=== PATIENT | female | born 1975 ===

== ENCOUNTER 2017-01-27 22:41 | Emergency (ER) | payer BC, OTHER ==
--- NOTE | 2017-01-27 22:50 | PDOC ---
History of Present Illness - General Chief Complaint: Pain, Acute Stated Complaint: CHEST PAIN Time Seen by Provider: 01/27/17 22:45 History Source: Patient Exam Limitations: No Limitations - History of Present Illness Initial Comments: 01/27/17 23:20 This is a 41-year-old female with history of hypertension otherwise she is healthy. Patient is complaining of approximately 1 hour pleuritic type chest pain. Patient denies any cough, congestion, fever, chills. Patient denies any recent viral illness. Patient said that she has small children at home and was at [employer] today and so is been doing a fair amount of lifting. Patient said pain is exacerbated with taking a deep breath and with movement. Patient denies any radiation, nausea, diaphoresis or any other associated symptoms. Patient says she is not short of breath. PAST MEDICAL HISTORY: no significant history PAST SURGICAL HISTORY: no significant history FAMILY HISTORY: no pertinant history SOCIAL HISTORY: Pt lives with family and is employed. MEDICATIONS: reviewed ALLERGIES: As per nursing notes Review of Systems General: No fevers or chills, no weakness, no weight loss HEENT: No change in vision. No sore throat,. No ear pain CardioVascular: Pleuritic type chest pain Respiratory:No cough, or wheezing. Gastrointestinal: no nausea, vomitting, diarrhea or constipation, No rectal bleeding Genitourinary: No dysuria, hematuria, or frequency Musculoskeletal: No joint or muscle pain or swelling Neurologic: No headache, vertigo, dizziness or loss of consciousness Psychiatric: nor depression Skin: No rashes or easy bruising Endocrine: no increased thirst or abnormal weight change Allergic: no skin or latex allergy All other systems reviewed and normal Exam: General: Well-nourished well-developed individual, no acute distress HEENT: Throat: Normal, tonsils normal, no erythema or exudate Neck: Supple, no meningeal signs, no lymphadenopathy Eyes::Pupils equal reactive and round, extraocular motion intact Chest: Pain is reproduced on palpation, Cardiac: S1-S2 normal, regular rate and rhythm, no murmurs rubs or gallops Respiratory: Lungs clear to auscultation bilateral Abdomen: Soft, nondistended, normal bowel sounds, nontender to palpation diffusely Extremities: Warm, dry, no cyanosis, clubbing, or edema Skin: No rashes Neuro: Alert and oriented x3, nonfocal exam, grossly intact, normal gait Psych: Normal mood and affect EKG normal sinus rhythm at a rate of [address]-T wave changes, normal intervals, normal EKG Assessment and plan: This is a 41-year-old female with pleuritic type chest pain. Patient had a normal EKG and her only risk factor for coronary artery disease is she reports a history of hypertension however is not on any medication for it and her blood pressure here in the emergency room was 103 systolic. Patient given an anti-inflammatory and told to continue it and follow- up with her primary care doctor. Past History - Past Medical History Allergies/Adverse Reactions: Allergies Allergy/AdvReac Type Severity Reaction Status Date / Time No Known Allergies Allergy Verified 01/27/17 22:49 Home Medications: Ambulatory Orders NK [No Known Home Medication] 01/27/17 *Physical Exam - Vital Signs Last Vital Signs Temp Pulse Resp BP Pulse Ox 98.1 F 80 16 103/73 100 01/27/17 22:50 01/27/17 22:50 01/27/17 22:50 01/27/17 22:50 01/27/17 22:50 ED Treatment Course - Medications Given in the ED: ED Medications Discontinued Medications Generic Name Dose Route Start Last Admin Trade Name Freq PRN Reason Stop Dose Admin Naproxen 500 mg 01/27/17 23:18 01/27/17 23:18 Naprosyn - PO 01/27/17 23:19 500 mg NOW ONE Administration *DC/Admit/Observation/Transfer Diagnosis at time of Disposition: Pleuritic chest pain - Discharge Dispostion Disposition: HOME Condition at time of disposition: Stable Admit: No - Patient Instructions Additional Instructions: Take Naprosyn [id number] is Aleve 2 tablets twice a day with food for the next week. If not improved in one week follow-up with your primary care doctor. Return to the emergency department immediately with ANY new, persistent or worsening symptoms. Continue any medications as previously prescribed by your physician. . Please make sure your doctor reviews the results of your emergency evaluation. Thank you for coming to the Emergency Department today for your care. It was a pleasure to see you today. Please note that your evaluation is INCOMPLETE until you follow-up with your doctor.
[2017-01-27 22:55] VITALS: BP 103/73; PULSE 80; TEMP 98.1; BMI 24.9
[2017-01-27] MEDS ORDERED: NAPROXEN 500 MG TABLET (FP) ONE (23:15)
[2017-01-27] MEDS ORDERED: NAPROXEN 500 MG TABLET (FP) PO ONE (23:18)
--- NOTE | 2017-01-28 14:16 | EKG ---
Test Reason : Blood Pressure : / mmHG Vent. Rate : 080 BPM Atrial Rate : 080 BPM P-R Int : 160 ms QRS Dur : 086 ms QT Int : 368 ms P-R-T Axes : 067 020 050 degrees QTc Int : 424 ms NORMAL SINUS RHYTHM NO PREVIOUS ECGS AVAILABLE Confirmed by MD NICK, SUYAPA ([id number]) on 01/28/2017 2:16:22 PM Referred By: MD LEVY Confirmed By:SUYAPA ROMERO MD
== END 2017-01-27 23:22 | disposition home or self-care (01) ==
LOC: FER 22:41
DX: R07.89 Other chest pain (principal); I10 Essential (primary) hypertension
CPT/HCPCS: 93005; 99281-25

== ENCOUNTER 2017-10-18 11:55 | Emergency (ER) | payer BC, OTHER ==
[2017-10-18] MEDS ORDERED: ACETAMINOPHEN 1000 MG/100 ML VIAL (NON FORMULARY) IVPB ONE (12:01)
[2017-10-18] MEDS ORDERED: SODIUM CHLORIDE 0.9% 1000 ML INFUS.BAG IV ONE (12:01)
[2017-10-18] MEDS ORDERED: ONDANSETRON 4 MG/2 ML VIAL IVPUSH ONE (12:01)
--- NOTE | 2017-10-18 12:01 | PDOC ---
History of Present Illness - General Chief Complaint: Respiratory Stated Complaint: COUGH & COLD SX - History of Present Illness Initial Comments: 10/18/17 12:04 42yo female presents c/o body aches, fevers, and a cough productive of green sputum. Pt states her daughter had a "cold" and thinks she gave it to her, but she is getting worse. States she has been running fevers of 102 at home. 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 States she has rhinorrhea, sore throat, body aches. States decreased PO intake and nausea assoc with the illness. denies vomiting or diarrhea. Denies rash. No carrizales. No neck pain. No meningeal signs. Pt is afebrile in the ED. Pt denies urinary complaints. Due for her menstrual cycle in 2 days. Pmhx: denies Pshx: denies Allergies: NKDA Home Meds: Denies Past History - Past Medical History Allergies/Adverse Reactions: Allergies Allergy/AdvReac Type Severity Reaction Status Date / Time No Known Allergies Allergy Verified 10/18/17 11:56 Home Medications: Ambulatory Orders Azithromycin [Zithromax 250mg Tablets -] 250 mg PO UTDICT #6 tab 10/18/17 D-Methorphan/PE/Acetaminophen [Theraflu Expressmax Cold-Cough] 245.5 ml PO ASDIR 10/18/17 Fluticasone Prop 0.05% Nasal [Flonase -] 1 - 2 spray NS BID #1 spray.pump Guaifenesin [Mucinex -] 600 mg PO ASDIR 10/18/17 - Suicide/Smoking/Psychosocial Hx Smoking History: Never smoked Have you smoked in the past 12 months: No Hx Alcohol Use: No Drug/Substance Use Hx: No Substance Use Type: None Review of Systems - Review of Systems Able to Perform ROS?: Yes Is the patient limited [place] proficient: No Constitutional: Yes: Chills, Fever, Malaise, Weakness HEENTM: Yes: Nose Congestion, Throat Pain Respiratory: Yes: Cough, Productive cough. No: Shortness of Breath Cardiac (ROS): No: Chest Pain, Palpitations ABD/GI: Yes: Nausea. No: Diarrhea, Vomiting, Abdominal cramping : No: Burning, Dysuria Musculoskeletal: Yes: Other (body aches). No: Neck Pain Integumentary: No: Rash Neurological: No: Headache, Numbness, Paresthesia All Other Systems: Reviewed and Negative *Physical Exam - Vital Signs 10/18/17 12:07 Selected Entries 10/18/17 11:55 Temperature 99.1 F Pulse Rate 94 H Respiratory 18 Rate Respiratory Normal Depth Respiratory Non-Labored Effort Blood Pressure 102/72 Blood Pressure 82 Mean O2 Sat by Pulse 98 Oximetry (%) Weight 65.771 kg - Physical Exam General Appearance: Yes: Nourished, Appropriately Dressed. No: Apparent Distress HEENT: positive: EOMI, MARQUES, Pharyngeal Erythema, Nasal Congestion. negative: Tonsillar Exudate, Tonsillar Erythema, Rhinorrhea Neck: positive: Trachea midline, Supple. negative: Rigid, Rigidity Respiratory/Chest: positive: Lungs Clear, Normal Breath Sounds. negative: Respiratory Distress Cardiovascular: positive: Regular Rhythm, Regular Rate, S1, S2 Musculoskeletal: positive: Normal Inspection, Other (ambulates with a steady gait) Extremity: positive: Normal Capillary Refill, Normal Inspection, Normal Range of Motion. 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 NML intact, Fully Oriented, Alert, Normal Response ED Treatment Course - LABORATORY CBC & Chemistry Diagram: 10/18/17 12:15 10/18/17 12:15 Medical Decision Making - Medical Decision Making 10/18/17 12:21 a/p: 42yo female with cough/congestion/fevers x 5 days -viral syndrome vs mucopurulent bronchitis vs pna -no meningeal signs -will check labs, cxr -will hydrate with ivf hydration, zofran for nausea, iv tylenol -will obtain ua/ucg -will monitor and reassess 10/18/17 12:52 pt sleeping in the stretcher resting comfortably 10/18/17 13:31 pt states feeling much better states her appetite is back no carrizales no nausea ambulatory to the bathroom discussed lab results discussed ua results pending flu swab cxr without acute findings 10/18/17 13:41 cxr negative 10/18/17 13:59 influenza negative suspect bronchitis with nasal congestion will give rx for azithro and flonase for nasal congestion discussed all reasons to return to the ED and need for follow up with PMD. answered all questions. stable for d/c to home *DC/Admit/Observation/Transfer Diagnosis at time of Disposition: Bronchitis - Discharge Dispostion Disposition: HOME Condition at time of disposition: Stable Decision to Admit order: No - Prescriptions Prescriptions: Azithromycin [Zithromax 250mg Tablets -] 250 mg PO UTDICT #6 tab Fluticasone Prop 0.05% Nasal [Flonase -] 1 - 2 spray NS BID #1 spray.pump - Referrals Referrals: Faith Mariee MD [Primary Care Provider] - - Patient Instructions Printed Discharge Instructions: DI for Acute Bronchitis Additional Instructions: Please alternate tylenol and motrin for the fever. Please take all medications as prescribed. You were given the first dose of azithromycin today in the ED. Please start the antibiotic at home tomorrow. Please drink plenty of fluids. Please schedule a follow up with your PMD on Thursday or Thursday of this week. - Post Discharge Activity - Attestations Physician Attestion: 10/18/17 13:44 I, Dr. Melisa Simeon, DO, attest that this document has been prepared under my direction and personally reviewed by me in its entirety. I further attest, that it accurately reflects all work, treatment, procedures and medical decision -making performed by me.
[2017-10-18 12:19] LABS: HCG,QUALITATIVE URINE Negative
[2017-10-18] MEDS ORDERED: ONDANSETRON 4 MG/2 ML VIAL ONE (12:20)
[2017-10-18] MEDS ORDERED: ACETAMINOPHEN INJECTION 100 ML IVPB ONE (12:20)
[2017-10-18 12:30] LABS: URINE BILIRUBIN 1+ (NEGATIVE); URINE GLUCOSE (UA) Negative (NEGATIVE); URINE KETONE 1+ (NEGATIVE); URINE NITRITE Negative (NEGATIVE); URINE UROBILINOGEN 0.2 (0.2-1.0)
[2017-10-18 12:30] LABS: RDW 12.2 % (11.6-15.6)
[2017-10-18 12:36] LABS: HEMATOCRIT 35.8 % (32.4-45.2); HEMOGLOBIN 12.4 GM/dl (10.7-15.3); MCH 30.3 pg (25.7-33.7); MCHC 34.7 g/dl (32.0-36.0); MEAN CELL VOLUME 87.4 fl (80-96); MEAN PLT VOLUME 9.1 fl (7.5-11.1); PLATELET COUNT 134 K/MM3 (134-434); RBC 4.09 M/mm3 (3.60-5.2); WHITE BLOOD COUNT 3.2 K/mm3 (4.0-10.8)
[2017-10-18 12:39] LABS: URINE APPEARANCE HAZY; URINE COLOR YELLOW; URINE LEUK ESTERASE 1+ (NEGATIVE); URINE PROTEIN 2+ (NEGATIVE)
[2017-10-18 12:51] LABS: ALBUMIN 3.7 g/dl (3.5-5.0); ALK PHOS 40 U/L (32-92); ANION GAP 7 (8-16); BILIRUBIN,TOTAL 0.3 mg/dl (0.2-1.0); BLOOD UREA NITROGEN 9 mg/dl (7-18); CALCIUM 8.4 mg/dl (8.4-10.2); CHLORIDE 101 mmol/L (98-107); CO2 25 mmol/L (22-28); CREATININE 0.7 mg/dl (0.6-1.3); GLUCOSE,RANDOM 115 mg/dl (74-106); POTASSIUM 3.5 mmol/L (3.5-5.1); SGOT/AST 19 U/L (10-42); SGPT/ALT 10 U/L (10-40); SODIUM 133 mmol/L (136-145); TOT PROT 7.1 g/dl (6.4-8.3)
[2017-10-18 12:54] LABS: AMORP URATES FEW /hpf (NONE SEEN); EPI CELLS MODERATE /HPF; URINE BACTERIA FEW /hpf (NEGATIVE)
[2017-10-18] MEDS ORDERED: AZITHROMYCIN 250 MG TABLET PO ONE (14:00)
[2017-10-18] MEDS ORDERED: AZITHROMYCIN 250 MG TABLET ONE (14:03)
[2017-10-18 14:29] VITALS: BP 119/65; PULSE 67; TEMP 98.9
== END 2017-10-18 14:30 | disposition home or self-care (01) ==
LOC: FER 11:55
PROC: 3E033NZ Introduction of Analgesics, Hypnotics, Sedatives into Peripheral Vein, Percutaneous Approach (ICD-10-PCS; principal; 2017-10-18)
PROC: 3E033GC Introduction of Other Therapeutic Substance into Peripheral Vein, Percutaneous Approach (ICD-10-PCS; 2017-10-18)
PROC: 3E0337Z Introduction of Electrolytic and Water Balance Substance into Peripheral Vein, Percutaneous Approach (ICD-10-PCS; 2017-10-18)
DX: J40 Bronchitis, not specified as acute or chronic (principal)
CPT/HCPCS: 36415; 71046-TC-FY; 80053; 81003; 81015; 84703; 85025; 87804; 99285-25; J0131; J7030